=== PATIENT | female | born 1975 | race Caucasian/White ===

== ENCOUNTER 2016-10-15 19:47 | Emergency (ER) | payer OTHER ==
[~2016-10-15 19:47] MED LIST: Sodium Chloride 0.9% 500 ML BAG ONE
[2016-10-15 20:25] LABS: #Monocytes 0.5 thou/uL (0.11-0.59); #Neutrophils 8.1 thou/uL (1.40-6.50); %Basophils 0.4 % (0.0-1.0); %Eosinophils 0.1 % (0.0-10.0); %Lymphocytes 10.1 % (21.0-51.0); %Monocytes 5.3 % (0.0-10.0); %Neutrophils 84.1 % (42.0-75.0); Mean Corpuscular HGB CONC 34.8 g/dL (32.0-36.0); Mean Platelet Volume 7.5 fL (7.4-10.4); Platelet Count 243 thou/uL (130-400); RBC Distribution Width 12.1 % (11.5-14.5); Red Blood Cell (RBC) Count 3.86 mill/uL (4.20-5.40); White Blood Cell (WBC) Count 9.6 thou/uL (4.8-10.8)
[2016-10-15 20:37] LABS: ALT (SGPT) 13 U/L (0-55); AST (SGOT) 17 U/L (5-34); Albumin 4.3 g/dL (3.5-5.0); Alkaline Phosphatase 68 U/L (40-150); Anion Gap 17 mmol/L (10-20); BUN (Urea Nitrogen) 13 mg/dL (7.0-18.7); Bilirubin, Total Less than 0.3 mg/dL (0.2-1.2); Calc. Creatinine Clearance 0 mL/min (70-130); Calcium 8.9 mg/dL (7.8-10.44); Carbon Dioxide 23 mmol/L (22-29); Chloride 100 mmol/L (98-107); Estimated GFR-MDRD 78; Globulin 2.9 g/dL (2.4-3.5); Glucose 139 mg/dL (70-105); Potassium 3.7 mmol/L (3.5-5.1); Protein, Total 7.2 g/dL (6.0-8.3); Sodium 136 mmol/L (136-145)
--- NOTE | 2016-10-15 21:46 | CT ---
EXAM: NONCONTRAST HEAD CT 10/15/16 HISTORY: Seizure. COMPARISON: None. TECHNIQUE: Noncontrast head CT is performed from skull base to skull vertex. FINDINGS: No parenchymal hemorrhage. No extra-axial hematoma. No midline shift. Basilar cisterns are patent. Brain volume, age appropriate. Cortical mason-white matter differentiation is preserved. Ventricles and sulci are patent and symmetric. The calvarium is intact. Adequate aeration of the sinuses and mastoid air cells. IMPRESSION: No acute intracranial process. POS: [facility]
--- NOTE | 2016-10-15 21:52 | RAD ---
EXAM: RIGHT FOREARM TWO VIEWS 10/15/16 HISTORY: Posttraumatic pain. COMPARISON: None. FINDINGS: No fracture. No cortical irregularity or periosteal reaction. IMPRESSION: No fracture. POS: [facility]
[2016-10-15] MEDS ORDERED: Adacel (T-DAP) 0.5 ML VIAL ONE (22:01)
--- NOTE | 2016-10-15 22:01 | RAD ---
EXAM: CHEST ONE VIEW 10/15/16 HISTORY: Injury. COMPARISON: 01/24/14. FINDINGS: Diminished lung volumes likely due to poor inspiratory effort. Cardiomegaly is noted. Possible pleur al and parenchymal changes in the left lung base cannot be excluded. No pneumothorax or osseous abno rmalities. IMPRESSION: 1. Cardiomegaly. 2. Possible pleural and parenchymal changes in the left lung base. POS: [facility]
--- NOTE | 2016-10-15 22:07 | CT ---
EXAM: CERVICAL SPINE CT WITHOUT CONTRAST 10/15/16 HISTORY: Seizure. Injury. Pain. COMPARISON: None. CORRELATION: Chest CT 04/20/10. TECHNIQUE: Postcontrast soft tissue neck CT is performed in the axial plane. Reformatted images are submitted f or interpretation. FINDINGS: Mass effect upon the supraglottic larynx due to medial deviation of both carotid arteries. The visua lized soft tissue neck structures are otherwise unremarkable. Incompletely evaluated peripherally ca lcified nodule in the left thyroid lobe. This nodule has been identified on previous CT. Varying degrees of central canal stenosis and foraminal narrowing on the basis of degenerative sherman e. Coronal reformatted images demonstrate appropriate alignment of the lateral masses of C1 and C2. Odo ntoid process is intact. Appropriate alignment of the intra-articular facets. Sagittal reformatted i mages demonstrate straightening of normal cervical lordosis which may be due to patient position, mu scle spasm or cervical collar. Prominent anterior osteophyte at the C5-C6 level. There is no prevert ebral soft tissue swelling. Based on the axial images, vertebral body heights are maintained. There is no fracture. IMPRESSION: 1. No fracture. 2. Incompletely evaluated left thyroid lobe peripherally calcified mass. Nonemergent thyroid ul trasound is recommended. POS: [facility]
--- NOTE | 2016-10-15 22:29 | RAD ---
EXAM: RIGHT ELBOW FOUR VIEWS 10/15/16 HISTORY: Pain. COMPARISON: None. FINDINGS: Four views right elbow: Note, lateral view is not adequate. Despite multiple attempts, patient would not hold still. Based o n the image provided, No obvious fractures. Evaluation for joint effusion is suboptimal. IMPRESSION: Suboptimal evaluation due to patient's inability to cooperate for a lateral view. Consider repeating lateral view when the patient is able to follow instructions. POS: [facility]
[2016-10-16 17:11] LABS: Carbamazepine-Tegretol 14.2 ug/mL (4.0-12.0)
== END 2016-10-15 22:30 | disposition home or self-care (01) ==
LOC: MADERS 19:47
DX: R56.9 Unspecified convulsions (principal); J11.1 Influenza due to unidentified influenza virus with other respiratory manifestations; I10 Essential (primary) hypertension; Z79.899 Other long term (current) drug therapy
CPT/HCPCS: 36415; 70450; 71010; 72125; 80053; 80156; 85025; 90471; 90715; 96360; J7050